=== PATIENT | male | born 1990 | race African-American/Black ===

== ENCOUNTER 2024-07-08 11:30 | Outpatient (REF) | payer BC, SELFPAY ==
--- OUTSIDE RECORDS SUMMARY | 2024-07-08 12:57 | XMS_ITS | Encounter Summary ---
Author Organization [employer] Address [address] [facility] [address] [place] [address] Care Team Providers Care Knitting Machine Fixer Name Role Phone Kael Osorio MD Primary Care Prov ider Encounter Details Date Type Department Care Team (Late st Contact Info) Description 07/08/2024 10:45 AM EST Office Visit [facility] [address] [place] [address] Kael Osorio MD [address] [place] [address] Encounter for medical examination to establish care (Primary Dx) Social History Tobacco Use Types Packs/Day Years Used Date Smoking Tobacco: Never Smokeless Tobacco: Never Tobacco Cessation:Counseling Given: Not Answered Alcohol Use Standard Drinks/Week Comments Yes 0 (1 standard drink = 0.6 oz pur e alcohol) socially beer Housing Stability Answer Date Recorded What is your housing situation today? I have noymyla basurto 07/08/[address] you li ve. Do you have problems with any of the following? None of the above 07/08/2024 Food Insecurity Answer Date Recorded Within the past 12 months, y ou worried that your food would run out before you got money to buy more: Never True 07/08/2024 Within the past 12 months,th e food you bought just didn't last and you didn't have enough money to get more: Never True 02/2025 Transportation Answer Date Recorded In the past 12 months, has l ack of transportation kept you from medical appts, meetings, work or from getting things needed for daily living? No 07/08/2024 Utilities Answer Date Recorded In the past 12 months, has t he electric, gas, oil or water company threatened to shut off services in your home? No 07/08/2024 Internet Access Answer Date Recorded Internet Access Q1 Yes 07/08/2024 Internet Access Q2 Not on file 07/08/2024 Sex and Gender Information Value Date Recorded Sex Assigned at Male 05/10/2024 11:04 AM EST Legal Sex Male 11:03 AM EST Gender Identity Male 05/10/2024 11:04 AM EST Sexual Orientation Choose not to disclose 2023 11:07 AM EST documented as of this encounter Last Filed Vital Signs Vital Sign Reading Time Taken Comments Blood Pressure 130/90 07/08/2024 10:38 AM EST Pulse 80 07/08/2024 10:38 AM EST Temperature 36.7 ??C (98 ??F) 07/08/2024 10:38 AM EST Respiratory Rate 20 07/08/2024 10:38 AM EST Oxygen Saturation 98% 07/08/2024 10:38 AM EST Inhaled Oxygen Concentration - - Weight 72.3 kg (159 lb 6.4 oz) 07/08/2024 10:38 AM EST Height 165.1 cm (5' 5 ) 07/08/2024 10:38 AM EST Body Mass Index 26.53 07/08/2024 10:38 AM EST documented in this encounter Miscellaneous Notes * Assessment & Plan Note - Kael Hood MD - 07/08/2024 11:12 AM ESTAssociated Problem(s): Encounter for medical examination to establish care Last pcp follow up 2016 ER:- Hospitalization: Flooring Professional shunt failure 2016 Pmhx: spina bifida, hydrocephalia, urine retention Pshx: Flooring Professional shunt 1990, 2016 All:- Meds:- documented in this encounter Plan of Treatment Scheduled Orders Name Type Priority Associated Diagnoses Orde r Schedule CBC auto differential Lab Routine Encounter for medical examination to establish care Expected: 07/08/2024 (Approximate), Expires: 07/08/2025 Comprehensive Metabolic Panel Lab Routine Encounter for medical examination to establish care Expected: 07/08/2024 (Approximate), Expires: 07/08/2025 Lipid Panel, Standard Lab Routine Encounter for medical examination to establish care Expected: 07/08/2024 (Approximate), Expires: 07/08/2025 TSH W/Reflex to FT4 Lab Routine Encounter for medical examination to establish care Expected: 07/08/2024 (Approximate), Expires: 07/08/2025 HIV-1/2 Antigen and Antibodies, Fourth Generation, with Reflexes Lab Routine Encounter for medical examination to establish care Expected: 07/08/2024 (Approximate), Expires: 07/08/2025 Hepatitis C Antibody with Reflex to HCV, RNA, Quantitative, Real-Time PCR Lab Routine Encounter for medical examination to establish care Expected: 07/08/2024, Expires: 07/08/2025 Hemoglobin A1c Lab Routine Encounter for medical examination to establish care Expected: 07/08/2024 (Approximate), Expires: 07/08/2025 Chlamydia/N. Gonorrhoeae RNA, TMA, Urogenitial Microbiology Routine Encounter for medical examination to establish care Ordered: 07/08/2024 Syphilis Screen Lab Routine Encounter for medical examination to establish care Expected: 07/08/2024, Expires: 07/08/2025 T-SPOT??.TB Lab Routine Encounter for medical examination to establish care Expected: 07/08/2024 (Approximate), Expires: 07/08/2025 documented as of this encounter Visit Diagnoses Diagnosis Encounter for medical examination to establish care- Primary documented in this encounter Care Teams Knitting Machine Fixer Relationship Specialty Start Date End Date Kael Osorio MD [address] [place] [id number] PCP - General Internal Medicine 07/08/24 documented as of this encounter
--- OUTSIDE RECORDS SUMMARY | 2024-07-08 12:57 | XMS_ITS | Encounter Summary ---
Author Organization [employer] Address [address] [facility] [address] [place] [address] Care Team Providers Care Corporate Communications Intern Name Role Phone Unavailable Primary Care Provider Unavailabl e Reason for Visit * Reason Comments Pre-visit Planning SDOH unable to reach LVM Encounter Details Date Type Department Care Team (Late st Contact Info) Description 07/01/2024 Patient Outreach [facility] [address] [place] [address] Kael Osorio MD [address] [place] [address] Pre-visit Planning (SDOH unable to reach LVM) Social History Tobacco Use Types Packs/Day Years Used Date Smoking Tobacco: Never Assessed Sex and Gender Information Value Date Recorded Sex Assigned at Male 05/10/2024 11:04 AM EST Legal Sex Male 11:03 AM EST Gender Identity Male 05/10/2024 11:04 AM EST Sexual Orientation Choose not to disclose 2023 11:07 AM EST documented as of this encounter Progress Notes * Sanaz Albarran - 07/01/2024 3:45 PM EST ESTEFANY Granados placed outbound call to patient to complete pre-visit planning. No answer at this time. Patient name and were not confirmed. CC left voicemail requesting return call. Direct contactinformation provided. documented in this encounter Plan of Treatment Not on file documented as of this encounter Visit Diagnoses Not on filedocumented in this encounter
--- OUTSIDE RECORDS SUMMARY | 2024-07-08 12:57 | XMS_ITS | Clinical Summary ---
Author Organization [employer] Address [address] [facility] [address] [place] [address] Care Team Providers Care Teaching Specialists Name Role Phone Kael Osorio MD Primary Care Prov ider Active Problems Problem Noted Date Diagnosed Date Encounter for medical examination to establish c are 07/08/2024 Assessment & Plan (07/08/2024 11:12 AM EST): Last pcp follow up 2016 ER:- Hospitalization: Budget Technician shunt failure 2016 Pmhx: spina bifida, hydrocephalia, urine retention Pshx: Budget Technician shunt 2016 All:- Meds:- Encounters Date Type Department Care Team Description 07/08/2024 10:45 AM EST Office Visit [facility] [address] [place] [address] Kael Osorio MD Encounter for medical examination to establish care (Primary Dx) 07/08/2024 Travel 07/01/2024 Patient Outreach [facility] [address] [place] [address] Kael Osorio MD Pre-visit Planning ([facility] unable to reach [facility]) 05/10/2024 Telephone [facility] [address] [place] [address] Jonatan Jacobs MD telephone call from Last 3 Months Family History Medical History Relation Name Comments GI problems Father Hypertension Father Diabetes Mother Hypertension Mother Cancer Neg Hx Relation Name Status Comments Father Mother Social History Tobacco Use Types Packs/Day Years Used Date Smoking Tobacco: Never Smokeless Tobacco: Never Tobacco Cessation:Counseling Given: Not Answered Alcohol Use Standard Drinks/Week Comments Yes 0 (1 standard drink = 0.6 oz pur e alcohol) socially beer Housing Stability Answer Date Recorded What is your housing situation today? I have noy sing 07/08/[address] you li [...] not to disclose 2023 11:07 AM EST Last Filed Vital Signs Vital Sign Reading [...] Mass Index 26.53 07/08/2024 10:38 AM EST Plan of Treatment Health Maintenance Due Date Last Done Comments Depression Screening 1991 HIV Screening 1991 Family Planning (PISQ) 2006 Hepatitis C Screening 2009 DTaP/Tdap/Td Vaccines (1 - Tdap) 2010 Hepatitis B Vaccines (1 of 3 - 19+ 3-dose series) 2010 COVID-19 Vaccine (1 - 2023-2 5 season) 2024 Influenza Vaccine (#1) 2024 Alcohol/Substance Use Screening 07/08/2025 SDOH Screening 07/08/2025 07/08/2024 Tobacco Screening 07/08/2025 07/08/2024 Zoster Vaccines (1 of 2) 2041 RSV Patients and Pa tients Aged 60 years or older (1 - 1-dose 75+ series) 2066 HIB Vaccines Aged Out No longer eligi ble based on patient's age to complete this topic HPV Vaccines Aged Out No longer eligi ble based on patient's age to complete this topic Hepatitis A Vaccines Aged Out No long er eligible based on patient's age to complete this topic IPV Vaccines Aged Out No longer eligi ble based on patient's age to complete this topic Meningococcal Vaccine Aged Out No parminder kathy eligible based on patient's age to complete this topic Pneumococcal Vaccine: Pediat rics (0 to 5 Years) and At-Risk Patients (6 to 49) Years) Aged Out No longer elig ible based on patient's age to complete this topic RSV under 20 months Aged Out No longe r eligible based on patient's age to complete this topic Rotavirus Vaccines Aged Out No longer eligible based on patient's age to complete this topic Insurance [facility] IN[facility] - [facility] Care Teams Teaching Specialists Relationship Specialty Start Date End Date Kael Osorio MD [address] [place] [id number] PCP - General Internal Medicine 07/08/24
--- OUTSIDE RECORDS SUMMARY | 2024-07-08 12:57 | XMS_ITS | Encounter Summary ---
Author Organization [employer] Address [address] [address] [facility] [address] [place] [address] Care Team Providers Care Lactation Nurse Name Role Phone Kael Osorio MD Primary Care Prov ider Encounter Details Date Type Department Care Team (Latest Contact Info) Description 07/08/2024 Travel Social History Tobacco Use Types Packs/Day Years Used Date Smoking Tobacco: Never Smokeless Tobacco: Never Alcohol Use Standard Drinks/Week Comments Yes 0 (1 standard drink = 0.6 oz pur e alcohol) socially beer Housing Stability Answer Date Recorded What is your housing situation today? I have noy basurto 07/08/[address] you [...] AM EST documented as of this encounter Plan of Treatment Not on file documented as of this encounter Visit Diagnoses Not on filedocumented in this encounter Care Teams Lactation Nurse Relationship Specialty Start Date End Date Kael Osorio MD [address] [place] [id number] PCP - General Internal Medicine 07/08/24 documented as of this encounter
[2024-07-08 14:04] LABS: MANUAL DIFF FLAG NO
[2024-07-08 14:09] LABS: Basophils Percent Auto 0.9 % (0-2); Eosinophils Absolute Auto 0.1 X10*3/uL (0.0-0.4); Eosinophils Percent Auto 1.8 % (0-4); Hematocrit 45.6 % (42.0-52.0); Hemoglobin 14.7 g/dl (14.0-18.0); Imm Gran Abs Auto 0.01 X10*3/uL (0.00-0.03); Imm Gran Pct Auto 0.2 % (0.0-0.4); Lymphocytes Percent Auto 45.1 % (20-40); Mean Corpuscular HGB Conc 32.2 g/dl (31.0-36.0); Mean Corpuscular Hemoglobin 28.9 pg (27.0-33.0); Mean Corpuscular Volume 89.6 fL (80.0-98.0); Mean Platelet Volume 10.1 fL (9.4-12.4); Monocytes Absolute Auto 0.4 X10*3/uL (0.1-1.2); Monocytes Percent Auto 8.7 % (2-11); Neutrophils Absolute Auto 1.9 x10*3/uL (2.0-8.3); Neutrophils Percent Auto 43.3 % (45-73); Platelet Count 253 X10*3/uL (160-400); Red Blood Count 5.09 X10*6/uL (4.60-5.80); Red Cell Distribution Width 11.2 % (11.0-16.0); White Blood Count 4.5 X10*3/uL (4.8-10.8)
[2024-07-08 14:23] LABS: Estimated Average Glucose 77 mg/dL; Hemoglobin A1C 89.3568 umol/L; Hemoglobin A1c % 4.3 % (<6.0)
[2024-07-08 14:40] LABS: Alanine Aminotransferase 39 U/L (0-40); Albumin Level 4.8 g/dL (3.5-5.0); Alkaline Phosphatase 67 U/L (39-117); Anion Gap 10 (12-20); Aspartate Amino Transferase 27 U/L (5-37); Bilirubin Total 0.9 mg/dL (0.0-1.0); Blood Urea Nitrogen 23 mg/dL (9-16); Calcium 9.9 mg/dL (8.4-10.2); Carbon Dioxide 24 mmol/L (22-29); Chloride 110 mmol/L (96-108); Cholesterol 195 mg/dL (<200); Estimated Glomerular Filt Rate > 60; Glucose Random 77 mg/dL (60-115); HDL Cholesterol 54 mg/dL (>40); LDL Cholesterol Calculated 128 mg/dL (<100); Sodium 140 mmol/L (135-145); Total Protein 8.5 g/dL (6.5-8.0); Triglycerides 68 mg/dL (<150)
[2024-07-08 14:41] LABS: HIV AB/AG Nonreactive (Nonreactive); HIV Num 1 0.06 S/CO (0.00-0.99); ~HepC Num1 0.11 S/CO (0.00-0.79); ~Hepatitis C Antibody Nonreactive (Nonreactive)
[2024-07-08 14:44] LABS: Syphilis Screen Nonreactive (Nonreactive)
[2024-07-08 14:58] LABS: TSH reflex Free T4 1.09 uIU/mL (0.32-4.0)
[2024-07-11 01:28] LABS: TS Negative Control Passed; TS Panel A 0; TS Panel B 0; TS Positive Control Passed; TSpotTB Negative (Negative)
== END 2024-07-08 11:31 | disposition home or self-care (01) ==
LOC: HO.CHCLDS 11:30
PROVIDERS: Visit Provider Internal Medicine
DX: Z00.00 Encounter for general adult medical examination without abnormal findings (principal); Z11.1 Encounter for screening for respiratory tuberculosis; Z13.1 Encounter for screening for diabetes mellitus
CPT/HCPCS: 36415; 80053; 80061; 83036; 84443; 85025; 86481; 86780; 86803; 87389